=== PATIENT | male | born 1990 | race African-American/Black ===

== ENCOUNTER 2018-03-06 20:17 | Emergency (ER) | payer MEDICAID ==
[~2018-03-06] VITALS: Ht 172.7 cm; Wt 62.0 kg
[2018-03-06 22:10] VITALS: BP 118/65
== END 2018-03-06 22:11 | disposition home or self-care (01) ==
LOC: ER 20:17
DX: M25.512 Pain in left shoulder (principal); M25.511 Pain in right shoulder; M79.622 Pain in left upper arm; M79.621 Pain in right upper arm; F12.10 Cannabis abuse, uncomplicated; Z98.890 Other specified postprocedural states; V43.62XA Car passenger injured in collision with other type car in traffic accident, initial encounter; Y93.89 Activity, other specified; Y92.488 Other paved roadways as the place of occurrence of the external cause
CPT/HCPCS: 73030; 73060; 99284